=== PATIENT | male | born 1985 | race Two or more races ===

== ENCOUNTER 2024-08-05 19:02 | Emergency (ER) | payer MEDICAID, SELFPAY ==
--- NOTE | ~2024-08-05 | XR_ITS ---
CLINICAL HISTORY: trauma 3 view right foot Comparison: None Findings: No acute fracture. No dislocation. No significant degenerative changes or erosions. Small talar beak and small posterior calcaneal enthesophyte. Os trigonum and small accessory ossicle adjacent to the cuboid. No ankle effusion. No radiopaque foreign body. IMPRESSION: 1. No acute findings. This document has been electronically signed by: Sumaya Brown MD on 08/05/2024 19:56:01
--- NOTE | ~2024-08-05 | XR_ITS ---
CLINICAL HISTORY: fall 3 view right ankle Comparison: None Findings: No acute fracture. No dislocation. Ankle mortise is intact. Corticated fragments of the medial malleolus and medial and lateral to the talus. No erosions. Small talar beak and posterior calcaneal enthesophyte. Os trigonum and accessory ossicle adjacent to the cuboid. No ankle effusion. No radiopaque foreign body. IMPRESSION: 1. No acute findings. 2. Nonacute findings as described. This document has been electronically signed by: Sumaya Brown MD on 08/05/2024 19:57:04
[2024-08-05 19:07] VITALS: BP 162/94; PULSE 98; O2SAT 99
[2024-08-05 19:09] VITALS: BP 139/80; PULSE 89; RESP 20; O2SAT 96
--- NOTE | 2024-08-05 19:11 | ED.GENADULT ---
HPI - General Adult General Chief complaint: Extremity Injury, Lower Stated complaint: FALL AFTER STEPS TWISTED R ANKLE 02/04 PAIN Time Seen by Provider: 08/06/24 00:01 Source: patient Limitations: no limitations History of Present Illness ED Provider: Hilaria Marion PA-C HPI narrative: 38-year-old male presents with left ankle pain. Patient states he was walking and he subsequently rolled his ankle. Now with the pain and swelling. Patient states he can ambulate, however he is limping. Related Data Allergies Allergy/AdvReac Type Severity Reaction Status Date / Time Penicillins Allergy Unknown HIVES Verified 08/05/24 19:12 Review of Systems Review of Systems: Yes all other systems are reviewed and are negative Constitutional: Constitutional: Denies fatigue and Denies fever(s) Musculoskeletal: Musculoskeletal: Reports arthralgias and Reports joint swelling Endocrine: Endocrine: Denies fatigue PMF Past Medical History Attestation statement: The following information was validated with the patient. Social History Social History Advance Directives: No Advance Directives Information Provided: No Physical Exam ED Vital Signs: Vital Signs - 24 hr 08/05/24 19:09 08/05/24 22:02 Temperature 98.2 F Pulse Rate 89 74 Respiratory Rate 20 18 Blood Pressure 139/80 118/73 Pulse Oximetry 96 97 Oxygen Delivery Method Room Air Room Air BMI result Body Mass Index 30.0 Const Other: Alert Orientation/consciousness: patient oriented x3 Resp Effort & Inspection: normal respiratory effort Cardio Other: Normal peripheral perfusion Skin Other: Warm dry no rash Neuro General: patient oriented x3, gait normal, no focal motor deficits and CN's II-XI intact bilaterally Extrem Other: No deformity noted of the ankle, can flex and extend Psych Other: Cooperative Course Course Course Narrative: RME, this is a rapid medical exam performed by Angel Polanco please refer to primary provider for complete H&P- 38-year-old male presents for evaluation of right ankle/foot injury. He reports missing a step while walking out of a store in twisting his right ankle. He has pain with ambulation. Plan for x-rays. Medications Administered Discontinued Medications Generic Name Dose Route Start Last Admin Trade Name Freq PRN Reason Stop Dose Admin Ibuprofen 600 mg 08/05/24 22:02 08/05/24 22:05 Ibuprofen 600 Mg Tablet PO 08/05/24 22:03 600 mg ONCE ONE Administration Medical Decision Making Medical Decision Making [facility] Narrative: 38-year-old male presents with right ankle pain. Patient states he was walking and he subsequently rolled his ankle. Now with the pain and swelling. Patient states he can ambulate, however he is limping. No chronic issues History: Per patient I have considered the following differential diagnoses: Fracture, dislocation, sprain, contusion Plan: X-rays obtained from triage there was no fracture or dislocation, patient has some arthritic changes he has a sprain. We will send with home care instructions. I have independently reviewed the following tests: X-ray right ankle: MPRESSION: 1. No acute findings. 2. Nonacute findings as described. X-ray right foot:Findings: No acute fracture. No dislocation. No significant degenerative changes or erosions. Small talar beak and small posterior calcaneal enthesophyte. Os trigonum and small accessory ossicle adjacent to the cuboid. No ankle effusion. No radiopaque foreign body. IMPRESSION: 1. No acute findings. Discharge Plan Discharge Clinical Impression: Ankle sprain and strain Patient Disposition: Home, Self-Care Instructions: Ankle Sprain (ED), R.I.C.E. Treatment (ED) Additional Instructions: The x-rays were negative for fracture or dislocation, you do have some arthritic changes of the heel consisting of bone spurs. See home care instructions, use the crutches to ambulate, bear weight as tolerated. Follow up with your primary care provider as needed You can use [id number] ibuprofen 600 mg taken every 6 hours with food, alternated with [id number] Tylenol 1000 mg taken every 8 hours, for your pain. Print Language: Romanian
[2024-08-05 22:02] VITALS: BP 118/73; PULSE 74; RESP 18; TEMP 36.8; O2SAT 97
[2024-08-05] MEDS: Ibuprofen 600 MG TABLET PO (22:05)
[2024-08-06] MEDS: Acetaminophen 325 MG TABLET 975 MG PO (00:13)
[2024-08-06 06:07] VITALS: BP 118/73; PULSE 74; RESP 18; TEMP 36.8; O2SAT 97
== END 2024-08-06 00:30 | disposition home or self-care (01) ==
PROVIDERS: Emergency Provider Emergency Medicine Emergency Medical Services
DX: S93.401A Sprain of unspecified ligament of right ankle, initial encounter (principal); M25.571 Pain in right ankle and joints of right foot; X50.1XXA Overexertion from prolonged static or awkward postures, initial encounter; Y93.01 Activity, walking, marching and hiking; Y92.9 Unspecified place or not applicable; Y99.8 Other external cause status
CPT/HCPCS: 73610; 73630; 99283; 99284

== ENCOUNTER → 2024-08-05 19:11 | Outpatient (BNV) | payer MEDICAID, SELFPAY | PROVIDERS: Visit Provider Specialist | DX: S89.91XA Unspecified injury of right lower leg, initial encounter (principal); W19.XXXA Unspecified fall, initial encounter | CPT/HCPCS: 73610; 73630 ==

== ENCOUNTER 2025-01-08 20:50 | Emergency (ER) | payer MEDICAID, SELFPAY ==
--- NOTE | ~2025-01-08 | US_ITS ---
CLINICAL HISTORY: Left Scrotal Swelling; Pain US scrotum with Doppler Comparison: None provided Findings: Right testicle is normal in size and echogenicity measuring 4.3 x 2.4 x 3.2 cm. There is normal color flow and arterial/venous spectral tracing in the right testicle. The right epididymis appears normal. There is no right hydrocele or varicocele. Left testicle is normal in size and echogenicity measuring 4.8 x 2.4 x 3.4 cm. There is normal color flow and arterial/venous spectral tracing in the left testicle. A normal left epididymis is not visualized. There are multiple spermatoceles or epididymal cysts replacing the left epididymis or less likely a complex septated hydrocele. There is a small left varicocele. IMPRESSION: 1. Unremarkable sonographic appearance of the testicles. 2. Multiple spermatoceles or epididymal cysts replacing the left epididymis or less likely a complex septated hydrocele. Spermatoceles are favored. 3. Small left varicocele. This document has been electronically signed by: Brock Mercado MD on 01/09/2025 00:22:19
[2025-01-08 21:02] VITALS: BP 155/99; BP 160/90; PULSE 110; PULSE 88; RESP 19; TEMP 37.3; O2SAT 97; O2SAT 99; BMI 29.5
--- NOTE | 2025-01-08 21:32 | MHC.EDTECH ---
pt permitted to keep phone per nurse Mcintosh
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
[2025-01-08 23:01] LABS: Cannabinoid Screen Urine Not Detected (Not Detect)
[2025-01-08 23:24] LABS: Appearance Urine Turbid; Glucose Urine UA Negative (Negative); PH 8.0 (5.0-9.0); Specific Gravity - Urine 1.020 (1.005-1.025)
[2025-01-08 23:45] LABS: Other Crystals Urine Present
[2025-01-09 05:53] VITALS: BP 151/98; PULSE 65; RESP 16; TEMP 36.8; O2SAT 98
[2025-01-09] MEDS: Naloxone HCl Nasal TAKE HOME 4 MG SPRAY 8 MG NOSTRILALT (06:35)
[2025-01-09 06:42] VITALS: BP 151/98; PULSE 65; RESP 16; TEMP 36.8; O2SAT 98
== END 2025-01-09 07:01 | disposition home or self-care (01) ==
PROVIDERS: Emergency Provider Emergency Medicine
DX: N43.42 Spermatocele of epididymis, multiple (principal); T65.91XA Toxic effect of unspecified substance, accidental (unintentional), initial encounter; R40.4 Transient alteration of awareness; Y92.9 Unspecified place or not applicable; N50.82 Scrotal pain; K40.90 Unilateral inguinal hernia, without obstruction or gangrene, not specified as recurrent
CPT/HCPCS: 76870; 80307; 81001; 93975; 99285

== ENCOUNTER → 2025-01-08 22:28 | Outpatient (BNV) | payer MEDICAID, SELFPAY | PROVIDERS: Emergency Provider Emergency Medicine; Visit Provider Radiology Diagnostic Radiology | DX: I86.1 Scrotal varices (principal) | CPT/HCPCS: 76870; 93975 ==

== ENCOUNTER 2025-01-15 06:15 | Emergency (ER) | payer MEDICAID, SELFPAY ==
[2025-01-15] VITALS (7 sets, daily range): BP systolic 119–161; BP diastolic 66–109; PULSE 62–100; RESP 16; TEMP 36.2–36.8; O2SAT 97–98; BMI 29.5
--- NOTE | ~2025-01-15 | XR_ITS ---
EXAMINATION: XR ELBOW, RIGHT CLINICAL INFORMATION: pain COMPARISON: None available. TECHNIQUE: AP, lateral, and oblique views of the right elbow. FINDINGS: There is intra-articular fracture involving the radial head with periosteal new bone formation. There are multiple metallic fragments dorsal to the olecranon. No displaced as are evident. XR/XR elbow RT min 3V IMPRESSION: Subacute radial head fracture. Electronically signed by: Robby Littlejohn MD 01/15/2025 02:13 PM EDT
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
[2025-01-15] MEDS: Naloxone HCl Nasal TAKE HOME 4 MG SPRAY 8 MG NOSTRILALT (06:29)
--- NOTE | 2025-01-15 08:22 | PC.NURSE ---
PT A&O X4 VSS Nad twitching. States chronic due to nerve damage Providerto be made aware-pt states O used to take Gabapentin by script but now I take it off the streets usually. Noother complaints- Ambulating to and from BR well without assist.
--- NOTE | 2025-01-15 09:24 | PC.NURSE ---
PT A&O X4 VSS When awake- pt is twitching legs- States normal for him as before- Provider aware- no new orders at this time.
--- NOTE | 2025-01-15 13:39 | PC.NURSE ---
Pt OOB to BR independently- C/O pain right elbow- benign on examination but reported to provider. VSS NAD A&O X4. asking for a sandwich.
--- NOTE | 2025-01-15 15:00 | PC.NURSE ---
Pt remains A&O X4 VSS Several updates given to wif. Pttol lunch well and has no other ocmplaints except elbow pain. Xray complete
== END 2025-01-15 16:00 | disposition home or self-care (01) ==
PROVIDERS: Emergency Provider Emergency Medicine
DX: S52.121A Displaced fracture of head of right radius, initial encounter for closed fracture (principal); M79.601 Pain in right arm; T50.901A Poisoning by unspecified drugs, medicaments and biological substances, accidental (unintentional), initial encounter; R11.0 Nausea; Y92.9 Unspecified place or not applicable; F14.10 Cocaine abuse, uncomplicated; X58.XXXA Exposure to other specified factors, initial encounter; Y93.9 Activity, unspecified; Y99.8 Other external cause status
CPT/HCPCS: 29105; 73080; 99284; S9485

== ENCOUNTER → 2025-01-15 13:53 | Outpatient (BNV) | payer MEDICAID, SELFPAY | PROVIDERS: Emergency Provider Emergency Medicine; Visit Provider Radiology Diagnostic Radiology | DX: S52.121A Displaced fracture of head of right radius, initial encounter for closed fracture (principal) | CPT/HCPCS: 73080 ==

== ENCOUNTER 2025-01-28 15:01 | Outpatient (REF) | payer MEDICAID, SELFPAY | END 2025-01-28 15:02 | disposition home or self-care (01) | LOC: HO.HOSX 15:01 | PROVIDERS: Visit Provider Physician Assistant | DX: Z13.89 Encounter for screening for other disorder (principal) ==

== ENCOUNTER 2025-05-07 08:19 | Outpatient (AMB) | payer MEDICAID, SELFPAY ==
--- NOTE | 2025-05-07 08:24 | MHC.OFFVIS ---
Intake Visit Reasons: Spermecele/Caricele (set)UA) Intake Note: New patient presents today for initial visit for spermecele/caricele Urology Medication:None Blood Thinner:None Antibiotic Allergies:None Allergies Penicillins Allergy (Unknown, Verified 05/07/25 08:25) HIVES HPI Comments Details: 05/07/25-- History of Present Illness The patient is a 39 year old male presenting for evaluation of testicular swelling. He was scheduled for this visit after a prior ultrasound identified swelling and cysts in the left testicular region. He reports first noticing the swelling in approximately 2014, and it remained stable in size until the last year when it began to enlarge. He denies any pain or discomfort in the area but is concerned that the size is getting out of control. The patient also reports a right-sided hernia that he initially sought evaluation for. He describes the hernia as intermittent, and it is sometimes painful. He states the testicular issue was discovered during an overall examination for the hernia. Results - Ultrasound of the testicle: 01/08/25--Multiple spermatoceles or epididymal cysts replacing the left epididymis or less likely a complex septated hydrocele. Spermatoceles are favored. Plan 1. Spermatocele - The testicular swelling was identified as a medium-sized spermatocele upon examination. - As the patient is asymptomatic and not experiencing pain, surgical intervention is not deemed necessary at this time. - The recommended plan is to monitor the condition, with a follow-up appointment scheduled in nine months to one year. - The patient was advised that the spermatocele could potentially enlarge, stay the same size, or shrink, but is unlikely to resolve completely. - The patient was reassured that the condition does not affect fertility. 2. Inguinal Hernia - The patient reports a right-sided hernia that is intermittent and occasionally painful. - A referral to General Surgery will be provided for hernia evaluation and management. 3. Drug Use Counseling - The patient was offered information on support resources for individuals with drug dependency. [facility] Medical History Overdose Polysubstance abuse Social History Substance Use Type: Crack/Cocaine and Heroin Results Reviewed Results Reviewed: Date of Service: 01/08/25 CLINICAL HISTORY: Left Scrotal Swelling; Pain US scrotum with Doppler Comparison: None provided Findings: Right testicle is normal in size and echogenicity measuring 4.3 x 2.4 x 3.2 cm. There is normal color flow and arterial/venous spectral tracing in the right testicle. The right epididymis appears normal. There is no right hydrocele or varicocele. Left testicle is normal in size and echogenicity measuring 4.8 x 2.4 x 3.4 cm. There is normal color flow and arterial/venous spectral tracing in the left testicle. A normal left epididymis is not visualized. There are multiple spermatoceles or epididymal cysts replacing the left epididymis or less likely a complex septated hydrocele. There is a small left varicocele. IMPRESSION: 1. Unremarkable sonographic appearance of the testicles. 2. Multiple spermatoceles or epididymal cysts replacing the left epididymis or less likely a complex septated hydrocele. Spermatoceles are favored. 3. Small left varicocele. Assessment & Plan Assessment & Plan (1) Right inguinal hernia: Code(s): K40.90 - Unilateral inguinal hernia, without obstruction or gangrene, not specified as recurrent Category: Medical (2) Spermatocele: Code(s): N43.40 - Spermatocele of epididymis, unspecified Category: Medical (3) Drug dependence: Code(s): F19.20 - Other psychoactive substance dependence, uncomplicated Category: Medical Plan Plan 1. Spermatocele - The testicular swelling was identified as a medium-sized spermatocele upon examination. - As the patient is asymptomatic and not experiencing pain, surgical intervention is not deemed necessary at this time. - The recommended plan is to monitor the condition, with a follow-up appointment scheduled in nine months to one year. - The patient was advised that the spermatocele could potentially enlarge, stay the same size, or shrink, but is unlikely to resolve completely. - The patient was reassured that the condition does not affect fertility. 2. Inguinal Hernia - The patient reports a right-sided hernia that is intermittent and occasionally painful. - A referral to General Surgery will be provided for hernia evaluation and management. 3. Drug Use Counseling - The patient was offered information on support resources for individuals with drug dependency. Orders: Referrals General Surgery Referral K40.90 - Unilateral inguinal hernia, without obstruction or gangrene, not specified as recurrent Patient Instructions: The patient had an opportunity to ask questions regarding treatment plan. The patient expressed understanding and agreement with the above treatment plan. The patient is aware they should contact our office by phone for worsening of their current condition or the appearance of new symptoms. Compliance is encouraged with any medications and followup testing that is ordered. It is a privilege to be allowed the opportunity to participate in the urologic care of your patient. If you have any questions or concerns regarding treatment for the above conditions please do not hesitate to contact me. The office telephone contact is [phone]. This note is constructed in part using voice recognition software. While every effort has been made to ensure accuracy public health physician errors may have been included. Yours sincerely, Kwasi Pride MD Scribe Plan - Not visible on output: Patient was informed and verbally consented to the use of an ambient scribe for clinic note documentation during this visit. Coding Level of Care Code New Pt Level 4 (13076) Diagnoses Right inguinal hernia K40.90 Spermatocele N43.40 Drug dependence F19.20
== END 2025-05-07 09:09 | disposition home or self-care (01) ==
LOC: HO.HUSH 08:20
PROVIDERS: Visit Provider Urology
DX: K40.90 Unilateral inguinal hernia, without obstruction or gangrene, not specified as recurrent (principal); N43.40 Spermatocele of epididymis, unspecified; F19.20 Other psychoactive substance dependence, uncomplicated; Z13.9 Encounter for screening, unspecified
CPT/HCPCS: 99204

== ENCOUNTER → 2025-05-07 08:19 | Outpatient (BNVA) | payer MEDICAID, SELFPAY | PROVIDERS: Visit Provider Urology | DX: K40.90 Unilateral inguinal hernia, without obstruction or gangrene, not specified as recurrent (principal); N43.40 Spermatocele of epididymis, unspecified; F19.20 Other psychoactive substance dependence, uncomplicated | CPT/HCPCS: 81003; 99202 ==